=== PATIENT | male | born 1970 | race Caucasian/White ===

== ENCOUNTER → 2016-08-02 | Outpatient (CLI) | payer BC ==
[2016-08-02 13:05] LABS: HEMOGLOBIN 14.1 gm/dl (14.0-17.5); RED BLOOD COUNT 4.5 M/UL (4.20-5.50); WHITE BLOOD COUNT 8.1 K/UL (4.5-11.0)
[2016-08-02 13:19] LABS: BUN/CREATININE RATIO 20 (0-10)
== END ==
LOC: LAB 11:40
PROVIDERS: Internal Medicine Nephrology; Nurse Practitioner
DX: E11.9 Type 2 diabetes mellitus without complications (principal); E78.5 Hyperlipidemia, unspecified; R53.83 Other fatigue; Q61.2 Polycystic kidney, adult type
CPT/HCPCS: 36415; 80053; 81001; 82043; 82570; 83036; 84436; 84443; 84480; 85025

== ENCOUNTER → 2016-08-14 | Outpatient (CLI) | payer BC | LOC: LAB 08:07 | DX: E78.5 Hyperlipidemia, unspecified (principal); E11.9 Type 2 diabetes mellitus without complications; R80.9 Proteinuria, unspecified; R53.83 Other fatigue | CPT/HCPCS: 36415; 80061 ==

== ENCOUNTER → 2016-10-16 | Outpatient (CLI) | payer BC ==
[2016-10-16 09:33] LABS: RED BLOOD COUNT 4.1 M/UL (4.20-5.50); WHITE BLOOD COUNT 7.8 K/UL (4.5-11.0)
== END ==
LOC: LAB 08:36
PROVIDERS: Nurse Practitioner
DX: Z12.5 Encounter for screening for malignant neoplasm of prostate (principal); E78.5 Hyperlipidemia, unspecified; E11.9 Type 2 diabetes mellitus without complications; R53.83 Other fatigue
CPT/HCPCS: 36415; 80053; 80061; 82043; 83036; 84153; 84436; 84443; 84480; 85025

== ENCOUNTER → 2017-01-21 | Outpatient (CLI) | payer BC | LOC: SLEEP 11:16 | DX: G47.33 Obstructive sleep apnea (adult) (pediatric) (principal); R06.83 Snoring | CPT/HCPCS: 95811 ==

== ENCOUNTER → 2020-08-16 | Outpatient (CLI) | payer OTHER ==
[~2020-08-16] MED LIST: LOPRESSOR 25 MG25 MG PO; NORVASC5 MG PO; PREDNISONE20 MG PO
[2020-08-16 15:21] LABS: HEMOGLOBIN 14.1 gm/dl (14.0-17.5); RED BLOOD COUNT 4.46 M/UL (4.20-5.50); WHITE BLOOD COUNT 7.4 K/UL (4.5-11.0)
[2020-08-16 15:40] LABS: BUN/CREATININE RATIO 22 (0-10)
[2020-08-17 07:11] LABS: VITAMIN D, 25-HYDROXY 19.1 ng/mL (30.0-100.0)
[2020-08-17 08:13] LABS: THYROXINE (T4) 6.1 ug/dL (4.5-12.0)
[2020-08-17 11:14] LABS: CREATININE, URINE 99.2 mg/dL (Not Estab.)
== END ==
LOC: LAB 14:59
PROVIDERS: Nurse Practitioner
DX: E11.9 Type 2 diabetes mellitus without complications (principal); E78.5 Hyperlipidemia, unspecified; E55.9 Vitamin D deficiency, unspecified; M25.562 Pain in left knee; M25.561 Pain in right knee; M25.462 Effusion, left knee; M25.461 Effusion, right knee
CPT/HCPCS: 36415; 73564; 80053; 80061; 82043; 82570; 83036; 84153; 84436; 84443; 84480; 85025

== ENCOUNTER → 2020-08-19 | Outpatient (CLI) | payer OTHER | LOC: LAB 14:21 | DX: M10.9 Gout, unspecified (principal) | CPT/HCPCS: 36415; 84550 ==

== ENCOUNTER → 2021-03-07 | Outpatient (CLI) | payer BC, OTHER ==
[2021-03-07 11:53] LABS: HEMOGLOBIN 14.5 gm/dl (14.0-17.5); RED BLOOD COUNT 4.41 M/UL (4.20-5.50); WHITE BLOOD COUNT 8.2 K/UL (4.5-11.0)
[2021-03-07 12:18] LABS: BUN/CREATININE RATIO 14 (0-10)
[2021-03-08 08:14] LABS: THYROXINE (T4) 6.5 ug/dL (4.5-12.0); VITAMIN D, 25-HYDROXY 17.4 ng/mL (30.0-100.0)
== END ==
LOC: LAB 11:25
PROVIDERS: Nurse Practitioner
DX: Z12.5 Encounter for screening for malignant neoplasm of prostate (principal); E11.9 Type 2 diabetes mellitus without complications; E78.5 Hyperlipidemia, unspecified; I10 Essential (primary) hypertension; M10.9 Gout, unspecified; R53.83 Other fatigue
CPT/HCPCS: 36415; 80053; 80061; 81001; 83036; 84153; 84436; 84443; 84480; 84550; 85025

== ENCOUNTER 2021-04-23 02:46 | Emergency (ER) | payer BC, OTHER ==
[2021-04-23 03:34] LABS: HEMOGLOBIN 13.2 gm/dl (14.0-17.5); RED BLOOD COUNT 4.04 M/UL (4.20-5.50); WHITE BLOOD COUNT 7.4 K/UL (4.5-11.0)
[2021-04-23 03:58] LABS: BUN/CREATININE RATIO 18 (0-10)
[2021-04-23] MEDS ORDERED: DOXYCYCLINE HY100 MG PO (06:08)
[2021-04-23] MEDS ORDERED: PROAIR DIGIHAL90 MCG INH (06:08)
== END 2021-04-23 06:30 | disposition home or self-care (01) ==
LOC: ER1 02:46
PROVIDERS: Physician Assistant
DX: R50.9 Fever, unspecified (principal); R05.9 Cough, unspecified; E78.5 Hyperlipidemia, unspecified; E11.9 Type 2 diabetes mellitus without complications; Z20.822 Contact with and (suspected) exposure to COVID-19
CPT/HCPCS: 71045; 80053; 81001; 82550; 82553; 83605; 83874; 84484; 85025; 85379; 85610; 85730; 87040; 93005; 99284; U0002

== ENCOUNTER 2022-02-02 06:31 | Emergency (ER) | payer OTHER ==
[~2022-02-02 06:31] MED LIST changes: +DOXYCYCLINE HY100 MG PO; +PROAIR DIGIHAL90 MCG INH
[2022-02-02 07:34] LABS: HEMOGLOBIN 12.6 gm/dl (14.0-17.5); RED BLOOD COUNT 3.94 M/UL (4.20-5.50); WHITE BLOOD COUNT 8.3 K/UL (4.5-11.0)
[2022-02-02 08:03] LABS: BUN/CREATININE RATIO 21 (0-10)
== END 2022-02-02 11:20 | disposition home or self-care (01) ==
LOC: ER1 06:31
PROVIDERS: Nurse Practitioner
DX: I10 Essential (primary) hypertension (principal); E11.9 Type 2 diabetes mellitus without complications; I11.9 Hypertensive heart disease without heart failure; Z79.899 Other long term (current) drug therapy
CPT/HCPCS: 71045; 80053; 81001; 82550; 82553; 84484; 85025; 93005; 96374; 99283; J1885